=== PATIENT | male | born 1940 | race Caucasian/White ===

== ENCOUNTER → 2018-09-29 | Outpatient (CLI) | payer MEDICARE, OTHER ==
[~2018-09-29] MED LIST: ATENOLOL50 MG PO; GEMCOR600 MG PO; LORATADINE10 MG PO; METHOCARBAMOL750 MG PO; PRILOSEC 20MG20 MG PO; TRAMADOL50 MG PO; ULTRAM100 MG PO; VALIUM 10MG10 MG/TAB PO; ZOCOR40 MG PO
== END ==
LOC: COL.RAD 09:42
DX: Z01.818 Encounter for other preprocedural examination (principal); I67.1 Cerebral aneurysm, nonruptured

== ENCOUNTER 2018-12-31 11:14 | Inpatient (IN) | payer MEDICARE, OTHER ==
[~2018-12-31] VITALS: Ht 167.6 cm; Wt 101.5 kg
--- NOTE | 2018-12-31 12:30 | NUR ---
PATIENT ARRIVED TO ROOM 325. PATIENT SETTELED INTO ROOM. CALL LIGHT WITHIN REACH.
[2018-12-31 12:52] VITALS: BP 106/47; PULSE 77; TEMP 97.8
--- NOTE | 2018-12-31 13:04 | NUR ---
PATIENT INITIAL ASSESSMENT COMPLETED BY [employer] SOLDERER.
[2018-12-31] MEDS ORDERED: LOFIBRA54 MG PO (15:35)
[2018-12-31] MEDS ORDERED: ZOCOR 40MG40 MG PO (15:36)
[2018-12-31] MEDS ORDERED: NORVASC2.5 MG PO (15:37)
[2018-12-31] MEDS ORDERED: TENORMIN 5050 MG/TAB PO (15:38)
[2018-12-31] MEDS ORDERED: LOPRESSOR 550 MG/TAB PO (15:38)
[2018-12-31] MEDS ORDERED: ZOLOFT 100MG100 MG PO (15:40)
[2018-12-31] MEDS ORDERED: ZANTAC 150MG T150 MG PO (15:40)
[2018-12-31] MEDS ORDERED: ASPIRIN 81M81 MG/TA2 PO (15:41)
[2018-12-31] MEDS ORDERED: VITAMIN D31000 I1 PO (15:41)
[2018-12-31] MEDS ORDERED: OMEGA-3 FISH1000 MG PO (15:42)
[2018-12-31] MEDS ORDERED: CINNAMON500 MG (15:43)
[2018-12-31] MEDS ORDERED: L-LYSINE500 M1 PO (15:44)
[2018-12-31] MEDS ORDERED: SUPER-B COMPLEX PO (15:47)
--- NOTE | 2018-12-31 15:48 | NUR ---
PATIENT ADMISSION B ASSESSMENT, MED REC AND ALLERGY LIST COMPLETED. PATIENT A&OX4. VSS. RIGHT AC TO INT. TESTICLES RED, SWOLLEN, PAINFUL AND WARM TO THE TOUCH. TESTICLES ELEVATED ON ROLLED UP HAND TOWEL AND ICE PACK APPLIED OVER PATIENT'S GOWN. CALL LIGHT WITHIN REACH. FAMILY PRESENT AT THE BEDSIDE. PATIENT DENIES ANY NEEDS AT THIS TIME.
[2018-12-31 15:56] VITALS: BP 117/36; PULSE 79; TEMP 98.4
--- NOTE | 2018-12-31 19:10 | NUR ---
REPORT GIVEN TO PADILLA DAN.
--- NOTE | 2018-12-31 20:45 | NUR ---
Pt. sitting up in bed at this time. Pt. is A&OX3, assessment complete. INT to rt. ac patent. Pt. denies pain at this time. Call light within reach.
[2018-12-31 20:54] VITALS: BP 111/59; PULSE 81; TEMP 99
[2018-12-31 23:24] VITALS: BP 131/83; PULSE 81; TEMP 98.6
[2019-01-01 03:52] VITALS: BP 103/60; PULSE 87; TEMP 98.4
[2019-01-01 07:44] VITALS: BP 131/54; PULSE 92; TEMP 98.2
--- NOTE | 2019-01-01 09:30 | NUR ---
Patient alert and oriented, answers questions appropriately. See assessment. Scrotum with edema and redness noted, elevated on washcloth. No bruising noted to scrotum. No c/o urinary difficulties. No other c/o at this time.
--- NOTE | 2019-01-01 11:07 | NUR ---
Initial visit; Patient thanked [employer] S[employer]rs Ssis Developer for looking in on him and offering Spiritual Care. Patient doing well and about to be discharged.
--- NOTE | 2019-01-01 11:11 | NUR ---
SW met with the patient to discuss discharge plan. The patient lives in [facility] [place] with his , Kathryn. He reports independence with ADLs and has a wheelchair and home oxygen. He could not recall what DME company he receives the oxygen from. The patient's PCP is Dr. Kenny Recio and he receives his medications at the [facility]. He reports no difficulties obtaining his meds. The patient does not have advanced directives and he was not interested in completing them at this time. The patient plans to return home with his upon discharge. No additional needs at this time.
[2019-01-01 11:20] VITALS: BP 120/57; PULSE 76; TEMP 97.9
--- NOTE | 2019-01-01 12:45 | NUR ---
Discharge instructions reviewed with patient and spouse, verbalized understanding. Discharged via wheelchair to auto/home with at 1245.
== END 2019-01-01 12:45 | disposition home or self-care (01) | DRG 728 ==
LOC: COL.RAD 11:14 → SURG 12:25
PROVIDERS: ADMIT Urology
DX: N45.2 Orchitis (principal); S38.02XA Crushing injury of scrotum and testis, initial encounter; X58.XXXA Exposure to other specified factors, initial encounter; Y92.012 Bathroom of single-family (private) house as the place of occurrence of the external cause; S30.22XA Contusion of scrotum and testes, initial encounter; F41.9 Anxiety disorder, unspecified; N18.9 Chronic kidney disease, unspecified; J44.9 Chronic obstructive pulmonary disease, unspecified; K21.9 Gastro-esophageal reflux disease without esophagitis; I12.9 Hypertensive chronic kidney disease with stage 1 through stage 4 chronic kidney disease, or unspecified chronic kidney disease; E78.1 Pure hyperglyceridemia; E66.9 Obesity, unspecified; Z68.36 Body mass index [BMI] 36.0-36.9, adult; Z88.5 Allergy status to narcotic agent
CPT/HCPCS: J1956